=== PATIENT | female | born 1950 | race Caucasian/White ===

== ENCOUNTER 2019-10-05 02:42 | Inpatient (IN) | payer MEDICARE, MEDICAID, SELFPAY ==
[2019-10-05] VITALS (12 sets, daily range): BP systolic 138–194; BP diastolic 71–100; PULSE 85–110; RESP 14–22; TEMP 36.7–38.2; O2SAT 92–98; BMI 49.2; BMI 47.9; BMI 35.0
--- NOTE | 2019-10-05 02:41 | ECG_ITS ---
APPROVED REPORT Exam: Resting ECG HR:115 bpm ECG Measurements Heart Rate 115 AXES WI 144 P 60 QRSd 78 QRS 63 QT 328 T 103 QTc 453 <Conclusion> Sinus tachycardia Otherwise normal ECG Electronically signed by : Santiago Paiz, 10/05/2019 08:38:32
--- NOTE | 2019-10-05 02:45 | PC.NURSE ---
pt received 500ml from ems fire suppression captain to ed.
--- NOTE | 2019-10-05 02:45 | PC.NURSE ---
ASSISTED PT TO BED VIA [facility]. REPORT RECEIVED FROM EMT-P SAGE THAT PATIENT IS CONSIDERED A COVID R/O DUE TO SYMPTOMS. APPROPRIATE PPE DONNED PER STAFF. PT A&OX4. GCS 15 AT TIME OF TRIAGE. SKIN FEELS, VERY WARM/DRY;HOT TO TOUCH. EXPLAINED NEED FOR IV'S, LABS, FLUIDS AND F/C. PT IS AGREEABLE.
--- NOTE | 2019-10-05 02:46 | XR_ITS ---
PROCEDURE: XR CHEST PORTABLE CLINICAL HISTORY: fever Fever COMPARISON: No exams were available for comparison FINDINGS: The cardiomediastinal silhouette and pulmonary vascularity are within normal limits. The lungs are clear without infiltrates, suspicious nodules, or pleural effusions. No acute bony abnormalities. Artifact is noted over the left shoulder IMPRESSION: No acute findings. Dictated by: Frederick Mcgovenr MD 10/05/2019 07:00 Electronically signed by Frederick Mcgovern MD in [place] 10/05/2019 07:00
[2019-10-05 03:02] LABS: Microscopic, Urine URINE MICROSCOPIC (MICROSCOPIC)
[2019-10-05 03:05] LABS: Chloride 99 mmol/L (98-107); Potassium 4.1 mmoL/L (3.5-5.1); Sodium 137 mmol/L (136-145)
[2019-10-05 03:07] LABS: Blood Urea Nitrogen 13 mg/dl (7-17); Creatinine Clearance Estimated 55 mL/min (50-200); Estimated Glomerular Filt Rate 71 ml/min (>60); GFR (African American) 86 ML/MIN (>60)
[2019-10-05 03:08] LABS: Lactic Acid 1.2 mmol/L (0.7-2.1)
[2019-10-05 03:08] LABS: Alanine Aminotransferase 25 U/L (12-78); Albumin Level 3.7 g/dl (3.5-5.0); Albumin/Globulin Ratio 1.3 (1.1-1.8); Alkaline Phosphatase 52 U/L (38-126); Anion Gap 8.1 mEq/L (5-15); Aspartate Amino Transferase 41 U/L (14-36); Bilirubin,Total 0.5 mg/dl (0.2-1.3); Calcium 9.7 mg/dl (8.4-10.2); Carbon Dioxide 34 mmol/L (22.0-30.0); Globulin 2.9 g/dL (1.3-3.2); Glucose 93 mg/dl (74-100); Total Protein,Serum 6.6 g/dl (6.3-8.2)
[2019-10-05 03:12] LABS: Basophils # 0.3 K/mm3 (0-0.2); Basophils % 5.9 % (0.1-2.0); Eosinophils % 0.5 % (0.1-12.0); Hematocrit 37.6 % (37.0-47.0); Hemoglobin 12.7 g/dL (12.2-16.2); Lymphocytes # 1.1 K/mm3 (0.7-4.5); Lymphocytes % 21.1 % (10-50); Mean Corpuscular HGB Conc 33.9 g/dL (31.8-35.4); Mean Corpuscular Hemoglobin 32.6 pg (27.0-31.2); Mean Corpuscular Volume 96.3 fl (81-99); Mean Platelet Volume 8.9 fl (7.4-10.4); Monocytes # 0.5 K/mm3 (0.1-1.0); Monocytes % 8.9 % (1.7-9.3); Neutrophils # 3.6 K/mm3 (1.8-7.8); Neutrophils % 69.5 % (37.0-80.0); Platelet Count 159 K/mm3 (142-424); Red Cell Distribution Width 17.2 % (11.5-17.5); White Blood Count 5.2 K/mm3 (4.8-10.8)
[2019-10-05 03:13] LABS: C-Reactive Protein 11.8 mg/L (0-4)
[2019-10-05 03:19] LABS: NT Pro Brain Natriuretic Pep. 153 pg/mL (0-125)
--- NOTE | 2019-10-05 03:24 | PC.NURSE ---
CALLED [facility] FOR COVID SWAB TESTING.
--- NOTE | 2019-10-05 03:24 | HMH.EDFEV ---
ED Disposition Clinical Impression: Febrile illness, acute, COVID-19 Disposition: Home, Self-Care Condition on Discharge: Fair Referrals: Provider,Referral, [Referring] - - Critical Care Critical Care Time: No Attestation: On 10/05/19, the high probability of a clinically significant, sudden or life threatening deterioration of the following system(s) required my full and direct attention, intervention and personal management. The time I documented below is in addition to time spent performing reported procedures but includes the following listed in this critical care notation. Medical Decision Making - Medical Records Medical records reviewed: Yes: I reviewed the patient's medical records. - Jovanny Inquiry Pt receiving controlled substance: No Vital Signs: 10/05/19 02:51 10/05/19 03:23 10/05/19 03:52 Temperature 100.8 F H 98.0 F Temperature Source Rectal Oral Pulse Rate [Right Brachial] 110 H 105 H 102 H Respiratory Rate 15 18 16 Blood Pressure [Right Arm] 165/94 H 152/74 H 146/71 H Blood Pressure Mean [Right Arm] 117 100 96 Blood Pressure Source [Right Arm] Manual Cuff/ Doppler Automatic Cuff Automatic Cuff Blood Pressure Position [Right Arm] Sitting Sitting Supine 02 Sat by Pulse Oximetry 95 98 95 Oxygen Delivery Method Room Air Room Air Room Air 10/05/19 04:00 10/05/19 04:44 Temperature Temperature Source Pulse Rate [Right Brachial] 105 H 101 H Respiratory Rate 18 14 Blood Pressure [Right Arm] 188/100 H 178/92 H Blood Pressure Mean [Right Arm] 129 120 Blood Pressure Source [Right Arm] Blood Pressure Position [Right Arm] Supine Supine 02 Sat by Pulse Oximetry 94 L 94 L Oxygen Delivery Method Room Air Room Air - Lab Data Lab results reviewed: Yes: I reviewed the patient's lab results. Lab Results 10/05/19 02:30: WBC 5.2, RBC 3.90 L, Hgb 12.7, Hct 37.6, MCV 96.3, MCH 32.6 H, MCHC 33.9, RDW 17.2, Plt Count 159, MPV 8.9, Neut % (Auto) 69.5, Lymph % (Auto) 21.1, [place] % (Auto) 8.9, Eos % (Auto) 0.5, Baso % (Auto) 5.9 H, Neut # (Auto) 3.6, Lymph # (Auto) 1.1, [place] # (Auto) 0.5, Eos # (Auto) 0.0, Baso # (Auto) 0.3 H 10/05/19 02:30: Sodium 137, Potassium 4.1, Chloride 99, Carbon Dioxide 34 H, Anion Gap 8.1, BUN 13, Creatinine 0.80, Estimated Creat Clear 55, Estimated GFR 71, Est GFR ( Amer) 86, Glucose 93, Calcium 9.7, Total Bilirubin 0.5, AST 41 H, ALT 25, Alkaline Phosphatase 52, Troponin I < 0.01, C-Reactive Protein 11.8 H, Total Protein 6.6, Albumin 3.7, Globulin 2.9, Albumin/Globulin Ratio 1.3 10/05/19 02:30: ESR 16 10/05/19 02:30: NT-Pro-B Natriuret Pep 153 H 10/05/19 02:30: Total Valproic Acid 58.8 10/05/19 02:40: Urine Color Yellow, Urine Appearance Clear, Urine pH 7.0, Ur Specific [place] 1.020, Urine Protein Negative, Urine Glucose (UA) Negative, Urine Ketones Negative, Urine Blood Negative, Urine Nitrate Negative, Urine Bilirubin Negative, Urine Urobilinogen 0.2, Ur Leukocyte Esterase Negative, Urine WBC 3-5, Ur Squamous Epith Cells 3-5, Urine Bacteria 1+ 10/05/19 02:40: Lactate 1.2 10/05/19 02:40: Influenza Type A Ag Negative, Influenza Type B Ag Negative 10/05/19 02:40: Group A Strep Rapid Negative 10/05/19 03:50: Chlamy pneumoniae PCR Not detected, Adenovirus (PCR) Not detected, B. pertussis DNA (PCR) Not detected, Coronavirus OC43 (PCR) Not detected, Coronavirus HKU1 (PCR) Not detected, Coronavirus 229E (PCR) Not detected, COVID-19 PCR Detected A, Coronavirus NL63 (PCR) Not detected, Human Metapneumovir PCR Not detected, Influenza A (H1) PCR Not detected, Influ A (H1N1/09) PCR Not detected, Influenza A (H3) PCR Not detected, Influenza Type A (PCR) Not detected, Influenza Type B (PCR) Not detected, M. pneumoniae (PCR) Not detected, Parainfluenza 1 (PCR) Not detected, Parainfluenza 2 (PCR) Not detected, Parainfluenza 3 (PCR) Not detected, Parainfluenza 4 (PCR) Not detected, RSV (PCR) Not detected, Entero/Rhino (PCR) Not detected Result diagrams: 10/05/19 02:30 10/05/19 02:30 Sb
[2019-10-05 03:26] LABS: Appearance,Urine CLEAR (Clear); Bilirubin,Urine Negative (Negative); Blood, Urine Negative (Negative); Color,Urine YELLOW (Yellow); Glucose,Urine (UA) Negative (Negative); Ketones,Urine Negative (Negative); Leukocyte Esterase,Urine Negative (Negative); Nitrate,Urine Negative (Negative); Protein,Urine Negative (Negative); Urobilinogen,Urine 0.2 EU/dl (0.2)
[2019-10-05 03:26] LABS: Troponin I < 0.01 ng/ml (0.00-0.034)
[2019-10-05 03:29] LABS: Strep Scrn Group A (Rapid) Negative (Negative)
[2019-10-05 03:35] LABS: Bacteria,Urine 1+ /lpf
[2019-10-05 03:40] LABS: Erythrocyte Sedimentation Rate 16 mm/hr (0-30)
[2019-10-05 03:53] LABS: Valproic Acid, (Depakene) 58.8 ug/ml (50-100)
--- NOTE | 2019-10-05 03:55 | PC.NURSE ---
LAB AT BEDSIDE
[2019-10-05 04:08] LABS: Adenovirus,PCR Not Detected (NotDetected); Bordetella Pertussis Not Detected (NotDetected); Chlamydophila Pneumoniae, PCR Not Detected (NotDetected); Coronavirus 229E Not Detected (NotDetected); Coronavirus NL63 Not Detected (NotDetected); Coronavirus OC43 Not Detected (NotDetected); Coronovirus HKU1,PCR Not Detected (NotDetected); Human Metapneumovirus Not Detected (NotDetected); Influenza A, PCR Not Detected (NotDetected); Influenza AH1, 2009 Not Detected (NotDetected); Influenza AH1, PCR Not Detected (NotDetected); Influenza AH3,PCR Not Detected (NotDetected); Influenza B, PCR Not Detected (NotDetected); Mycoplasma Pneumoniae, PCR Not Detected (NotDected); Parainfluenza 1, PCR Not Detected (NotDetected); Parainfluenza 2, PCR Not Detected (NotDetected); Parainfluenza 3, PCR Not Detected (NotDetected); Parainfluenza 4, PCR Not Detected (NotDetected); Respiratory Syncytial Virus Not Detected (NotDetected); Rhinovirus/Enterovirus Not Detected (NotDetected)
--- NOTE | 2019-10-05 04:51 | PC.NURSE ---
pt resting with eyes closed, no acute distress.
[2019-10-05 05:27] LABS: Coronavirus 19, PCR Detected (NotDetected)
--- NOTE | 2019-10-05 05:34 | PC.NURSE ---
notified house of covid result
[2019-10-05 06:30] LABS: Troponin I < 0.01 ng/ml (0.00-0.034)
--- NOTE | 2019-10-05 06:44 | SW/DCPLANNER ---
PATIENT ADMITTED [facility].... CURRENTLY IN THE ICU, PATIENT WILL NEED DISCHARGE PLANNING ONCE MEDICALLY STABLE TO DISCHARGE... WILL KEEP IN CONTACT WITH HER PERSONAL [facility] TO WHETHER SHE WILL BE ABLE TO RETURN BACK THERE... DISPOSITION UNCERTAIN...
--- NOTE | 2019-10-05 07:15 | PC.NURSE ---
She is weak. She is A&Ox4. Voiding per f/c. Urine is yellow, clear. Reports some body aches. Is in contact and airborne precautions. Non-productive cough present. Denies sore throat and head. Denies GI symptoms.
[2019-10-05 10:29] LABS: Troponin I < 0.01 ng/ml (0.00-0.034)
--- NOTE | 2019-10-05 11:07 | HMH.HP ---
*Admission Date: 10/05/19 *Chief complaint: Fever *History of present illness: 68 YOF in to ED w/ fever x2 to 3 days, recent exposure and care home to [place] [id number]. Patient reports of bilateral lower extremity aches productive cough, and just not feeling well . Received Toradol 30 mg and normal saline 1 L in ED temperature was 100.8 rectally upon arrival in ED COVID-19 positive, virus panel negative. Blood cultures pending x2 Troponins negative x3 10/04/2019 chest x-ray: IMPRESSION: No acute findings. Dictated by: Dr. Mcgovern, [facility] History Medical History: Reports:: Hypertension Denies:: Cancer, Diabetes Mellitus Type 1, Diabetes Mellitus Type 2, MRSA *Have you ever received a pneumonia vaccine?: Yes *Have you received a flu vaccine this season?: Yes Amputation: No - *Social History Educational Level: Attended High School Smoking Status: Former smoker Alcohol Intake: never *Occupational Status:: retired Housing: assisted living facility Household Members: none *Travel in the last 8 weeks: None Family Hx:: Unable to obtain Review of Systems - Review of Systems Review of systems:: pertinent systems reviewed and negative unless documented below - Constitutional Reports body ache(s), Reports fatigue, Reports fever(s) - Eyes Denies change in vision - ENT Denies dental pain, Denies headache(s) - *Cardiovascular Denies chest pain - *Respiratory Reports chest congestion, Reports cough, Reports shortness of breath, Denies coughing up blood - *Gastrointestinal Denies abdominal pain, Denies change in bowel habits - *Musculoskeletal Reports body aches, Denies back pain - Integumentary/Breasts Denies change in hair, Denies yellowing of the skin - *Neurologic Denies headache(s), Denies seizure-like activity - Endocrine Denies cold intolerance, Denies heat intolerance, Denies rapid, pounding, or irregular heartbeat - Hematologic/Lymphatic Denies easy bleeding, Denies easy bruising - Allergic/Immunologic Denies GI upset with certain foods, Denies tongue swelling Meds Home Medications Medication Instructions Recorded Confirmed Type Amlodipine Besylate [Amlodipine 1 tab PO DAILY 10/05/19 10/05/19 History 5mg tab] Ascorbic Acid [Vitamin C] 1,000 mg PO DAILY 10/05/19 10/05/19 History Aspirin [Aspirin 81mg chewable 81 mg PO DAILY 10/05/19 10/05/19 History tab] Calcium Carbonate/Vitamin D3 1 each PO DAILY 10/05/19 10/05/19 History [Oyster Shell 250 mg + Vit D Tb] Divalproex Sodium [Depakote] 500 mg PO DAILY 10/05/19 10/05/19 History Melatonin/Pyridoxine HCl (B6) 1 each PO DAILY 10/05/19 10/05/19 History [Melatonin 1 mg Tablet] Mvit-Mins/Folic Acid/Soy Isofl 1 each PO DAILY 10/05/19 10/05/19 History [One-A-Day Menopause Formula Tb] polyethylene glycoL 3350 [Miralax 17 gm PO DAILY 10/05/19 10/05/19 History 17gm Packet] risperiDONE [Risperdal 1mg Tablet] 2 mg PO HS 10/05/19 10/05/19 History Allergies Allergy/AdvReac Type Severity Reaction Status Date / Time No Known Allergies Allergy Verified 10/05/19 07:26 Exam Vital signs and Labs for Last 24 Hours: Temp Pulse Resp BP Pulse Ox 98.0 F 85 16 194/95 H 97 10/05/19 08:00 10/05/19 08:00 10/05/19 08:00 10/05/19 08:00 10/05/19 08:00 Laboratory Results - last 24 hr 10/05/19 02:30: WBC 5.2, RBC 3.90 L, Hgb 12.7, Hct 37.6, MCV 96.3, MCH 32.6 H, MCHC 33.9, RDW 17.2, Plt Count 159, MPV 8.9, Neut % (Auto) 69.5, Lymph % (Auto) 21.1, [place] % (Auto) 8.9, Eos % (Auto) 0.5, Baso % (Auto) 5.9 H, Neut # (Auto) 3.6, Lymph # (Auto) 1.1, [place] # (Auto) 0.5, Eos # (Auto) 0.0, Baso # (Auto) 0.3 H 10/05/19 02:30: Sodium 137, Potassium 4.1, Chloride 99, Carbon Dioxide 34 H, Anion Gap 8.1, BUN 13, Creatinine 0.80, Estimated Creat Clear 55, Estimated GFR 71, Est GFR ( Amer) 86, Glucose 93, Calcium 9.7, Total Bilirubin 0.5, AST 41 H, ALT 25, Alkaline Phosphatase 52, Troponin I < 0.01, C-Reactive Protein 11.8 H,
--- NOTE | 2019-10-05 11:34 | HMH.PHAVTE ---
[facility] Pharmacy VTE Monitoring - Patient Demographics Admission date: 10/04/19 Report Date: 10/05/19 Time: 11:34 Allergies/Adverse Reactions: Patient Allergies No Known Allergies Allergy (Verified 10/05/19 07:26) Height: 1.8 m Weight: 113.908 kg Patient Problems: Current Active Problems Febrile illness, acute (Acute) COVID-19 (Acute) - VTE Risk Labs: VTE Related Lab Results Hgb 12.7 g/dL (12.2-16.2) 10/05/19 02:30 Hct 37.6 % (37.0-47.0) 10/05/19 02:30 Plt Count 159 K/mm3 (142-424) 10/05/19 02:30 BUN 13 mg/dl (7-17) 10/05/19 02:30 Creatinine 0.80 mg/dl (0.52-1.04) 10/05/19 02:30 Estimated Creat Clear 55 mL/min (50-200) 10/05/19 02:30 Was VTE Risk Assessment Performed: No VTE Score: 5 VTE Risk Level: Low Risk Clinical Trial Participant: No - Prophylaxis VTE Prophylaxis Ordered?: Yes Types of VTE Prophylaxis: TEDS Knee High, Pharmacological Pharmacologic Type: Enoxaparin
--- NOTE | 2019-10-05 13:17 | HMH.PHAINT ---
MEDICATION RECONCILIATION COMPLETED ON PATIENT USING LIST FROM [facility]. -ARLENE GARZA, ARIELLED
--- NOTE | 2019-10-05 14:24 | HMH.PHAINT ---
HOME MEDICATION RECONCILIATION COMPLETED USING A LIST FROM [facility]
--- NOTE | 2019-10-05 18:36 | PC.NURSE ---
Pt alert and oriented. New IV started in L AC with NS at 75 ML/HR per jul. CB in reach. Have repositioned in bed. No complaints. Has maintained sats well on RA. Will cont to mx. Continues in isolation. Bath given. VSS.
[2019-10-06] VITALS: BP 177/90; PULSE 97; RESP 20; TEMP 37.9; O2SAT 95
[2019-10-06 04:00] VITALS: BP 150/93; PULSE 98; RESP 18; TEMP 37.6; O2SAT 95
[2019-10-06 05:00] VITALS: BMI 34.8
[2019-10-06 05:25] LABS: Basophils # 0.2 K/mm3 (0-0.2); Basophils % 5.4 % (0.1-2.0); Chloride 101 mmol/L (98-107); Eosinophils % 0.9 % (0.1-12.0); Hematocrit 37.9 % (37.0-47.0); Hemoglobin 12.8 g/dL (12.2-16.2); Lymphocytes # 1.4 K/mm3 (0.7-4.5); Lymphocytes % 36.8 % (10-50); Mean Corpuscular HGB Conc 33.7 g/dL (31.8-35.4); Mean Corpuscular Hemoglobin 32.6 pg (27.0-31.2); Mean Corpuscular Volume 96.7 fl (81-99); Mean Platelet Volume 9.3 fl (7.4-10.4); Monocytes # 0.4 K/mm3 (0.1-1.0); Neutrophils % 51.3 % (37.0-80.0); Platelet Count 134 K/mm3 (142-424); Potassium 3.7 mmoL/L (3.5-5.1); Red Blood Count 3.91 M/mm3 (4.20-5.40); Red Cell Distribution Width 17.3 % (11.5-17.5); Sodium 138 mmol/L (136-145); White Blood Count 3.8 K/mm3 (4.8-10.8)
[2019-10-06 05:28] LABS: Anion Gap 8.7 mEq/L (5-15); Blood Urea Nitrogen 11 mg/dl (7-17); Carbon Dioxide 32 mmol/L (22.0-30.0); Creatinine Clearance Estimated 94 mL/min (50-200); Estimated Glomerular Filt Rate 83 ml/min (>60); GFR (African American) 100 ML/MIN (>60)
[2019-10-06 05:29] LABS: Glucose 78 mg/dl (74-100)
[2019-10-06 06:23] LABS: Calcium 8.3 mg/dl (8.4-10.2)
--- NOTE | 2019-10-06 06:48 | PC.NURSE ---
shift summary, temp has remained between 99.0 and 100.5 throughout shift, O2 sats have been high 90's on RA, no complaints of SOB or pain.
[2019-10-06 07:56] VITALS: BP 180/99; PULSE 81; RESP 20; TEMP 36.8; O2SAT 94
--- NOTE | 2019-10-06 08:59 | HMH.ACPN2 ---
Internal Medicine - PN: Subj *Date: 10/06/19 *Time: 08:59 Interval history: 68-year-old female patient sitting up in bed tolerating breakfast without any difficulties. Current oxygen saturation 93 to 95% on room air, she denies any needs at this time, temperature overnight 100.2. Exam Vital signs and Labs for Last 24 Hours: Temp Pulse Resp BP Pulse Ox 98.3 F 81 20 180/99 H 94 L 10/06/19 07:56 10/06/19 07:56 10/06/19 07:56 10/06/19 07:56 10/06/19 07:56 Laboratory Results - last 24 hr 10/05/19 09:25: Troponin I < 0.01 10/06/19 05:00: WBC 3.8 L D, RBC 3.91 L, Hgb 12.8, Hct 37.9, MCV 96.7, MCH 32.6 H, MCHC 33.7, RDW 17.3, Plt Count 134 L, MPV 9.3, Neut % (Auto) 51.3, Lymph % (Auto) 36.8, [place] % (Auto) 11.0 H, Eos % (Auto) 0.9, Baso % (Auto) 5.4 H, Neut # (Auto) 2.0, Lymph # (Auto) 1.4, [place] # (Auto) 0.4, Eos # (Auto) 0.0, Baso # (Auto) 0.2 10/06/19 05:00: Sodium 138, Potassium 3.7, Chloride 101, Carbon Dioxide 32 H, Anion Gap 8.7, BUN 11, Creatinine 0.70, Estimated Creat Clear 94, Estimated GFR 83, Est GFR ( Amer) 100, Glucose 78, Calcium 8.3 L D I & O for Last 24 hours: Intake & Output 10/03/19 10/04/19 10/05/19 10/06/19 23:59 23:59 23:59 23:59 Intake Total 2840 / 2840 1090 / 1090 Output Total 2300 / 2300 1700 / 1700 Balance 540 / 540 -610 / -610 Weight 251 lb 2 oz 249 lb - Constitutional no acute distress - *Routine HEENT Exam Head: Present: normocephalic ENT: Present: mucous membranes dry - *Routine Neck Exam Present: full ROM, trachea midline. Absent: JVD, tracheal deviation - *Routine Respiratory Exam Present: rhonchi. Absent: accessory muscle use - *Routine Cardiovascular Exam Present: RRR, murmur - *Routine Abdominal Exam Present: soft, normoactive bowel sounds. Absent: tenderness, firm - *Routine Extremities Exam Present: edema, pulses intact - *Routine Skin Exam Present: intact, warm. Absent: jaundice - *Routine Neurological Exam Present: alert, altered mental status - Routine Psychiatric Exam Present: unable to assess Assessment and Plan (1) COVID-19 Current visit: Yes Status: Acute Category: Medical Code(s): U07.1 - COVID-19 (2) Febrile illness, acute Current visit: Yes Status: Acute Category: Medical Code(s): R50.9 - Fever, unspecified (3) Adult BMI 34.0-34.9 kg/sq m Current visit: Yes Status: Acute Category: Medical Code(s): Z68.34 - Body mass index (BMI) 34.0-34.9, adult - Assessment and plan all Dx Assessment and Plan for all problems:: Rounded with Dr. Saenz, all orders per Dr. Saenz
[2019-10-06 11:47] VITALS: BP 157/91; PULSE 80; RESP 21; TEMP 36.6; O2SAT 94
--- NOTE | 2019-10-06 14:00 | PC.NURSE ---
PT IS RESTING IN BED. NO COMPLAINTS OF DISCOMFORT. ALERT AND ORIENTED X4. RT SIDED FACIAL DROOPING NOTED FROM A CVA IN THE PAST. PT WAS ABLE TO TOLERATE GETTING OOB WITH 1 ASSIST. MODERATE BROWN/HARD BOWEL MOVEMENT. LUNG SOUNDS HAVE SCATTERED RHONCHI. ABDOMEN SOFT/OBESE WITH ACTIVE BOWEL SOUNDS. SKIN C/D/I. BATH AND LINEN CHANGE THIS SHIFT. EATING AND DRINKING WELL. WILL CONTINUE TO MONITOR.
[2019-10-06 15:19] VITALS: BP 165/88; PULSE 83; RESP 18; TEMP 36.8; O2SAT 97
[2019-10-06 20:00] VITALS: BP 160/75; PULSE 89; PULSE 92; RESP 16; TEMP 36.7; O2SAT 94; O2SAT 95
[2019-10-07] VITALS: BP 157/76; PULSE 89; RESP 18; TEMP 36.4; O2SAT 95
[2019-10-07 04:00] VITALS: BP 137/66; PULSE 98; RESP 18; TEMP 37; O2SAT 96
[2019-10-07 05:00] VITALS: BMI 34.3
--- NOTE | 2019-10-07 06:40 | PC.NURSE ---
All care provided by GASPER Durant was supervised by Caterina Fleming RN. Pt is in Airborne & Contact precautions with eye protection and all staff has maintained proper PPE t/o shift.
[2019-10-07 06:49] LABS: Basophils # 0.1 K/mm3 (0-0.2); Basophils % 1.5 % (0.1-2.0); Eosinophils % 0.3 % (0.1-12.0); Hematocrit 37.6 % (37.0-47.0); Hemoglobin 12.4 g/dL (12.2-16.2); Lymphocytes # 1.1 K/mm3 (0.7-4.5); Lymphocytes % 27.4 % (10-50); Mean Corpuscular HGB Conc 33.1 g/dL (31.8-35.4); Mean Corpuscular Hemoglobin 32.2 pg (27.0-31.2); Mean Corpuscular Volume 97.4 fl (81-99); Monocytes # 0.3 K/mm3 (0.1-1.0); Monocytes % 7.9 % (1.7-9.3); Neutrophils # 2.5 K/mm3 (1.8-7.8); Neutrophils % 62.9 % (37.0-80.0); Platelet Count 144 K/mm3 (142-424); Red Blood Count 3.86 M/mm3 (4.20-5.40); Red Cell Distribution Width 17.1 % (11.5-17.5)
[2019-10-07 06:58] LABS: Anion Gap 5.4 mEq/L (5-15); Blood Urea Nitrogen 10 mg/dl (7-17); Calcium 8.3 mg/dl (8.4-10.2); Carbon Dioxide 34 mmol/L (22.0-30.0); Chloride 101 mmol/L (98-107); Creatinine Clearance Estimated 92 mL/min (50-200); Estimated Glomerular Filt Rate 83 ml/min (>60); GFR (African American) 100 ML/MIN (>60); Glucose 79 mg/dl (74-100); Potassium 3.4 mmoL/L (3.5-5.1); Sodium 137 mmol/L (136-145)
--- NOTE | 2019-10-07 07:35 | PC.NURSE ---
Pt has rested well t/o this shift. Pt denied any pain, N/V, or SOB this shift. Pt had a large, hard BM at the beginning of the shift. Henderson cath draining clear, ylw urine to gravity. Henderson in place d/t strict I&O's. Pt continues on room air with sats in the mid 90's. VSS, call light within reach, will continue to monitor.
[2019-10-07 08:00] VITALS: BP 169/74; PULSE 96; RESP 18; TEMP 36.9; O2SAT 96
--- NOTE | 2019-10-07 08:44 | P.PN_ITS ---
Internal Medicine - PN: Subj *Date: 10/07/19 *Time: 08:44 Interval history: pt sitting up in bed talking on the phone. Exam Vital signs and Labs for Last 24 Hours: Temp Pulse Resp BP Pulse Ox 98.4 F 96 H 18 169/74 H 96 10/07/19 08:00 10/07/19 08:00 10/07/19 08:00 10/07/19 08:00 10/07/19 08:00 Laboratory Results - last 24 hr 10/07/19 06:04: WBC 4.0 L, RBC 3.86 L, Hgb 12.4, Hct 37.6, MCV 97.4, MCH 32.2 H, MCHC 33.1, RDW 17.1, Plt Count 144, MPV 9.0, Neut % (Auto) 62.9, Lymph % (Auto) 27.4, [place] % (Auto) 7.9, Eos % (Auto) 0.3, Baso % (Auto) 1.5, Neut # (Auto) 2.5, Lymph # (Auto) 1.1, [place] # (Auto) 0.3, Eos # (Auto) 0.0, Baso # (Auto) 0.1 10/07/19 06:04: Sodium 137, Potassium 3.4 L, Chloride 101, Carbon Dioxide 34 H, Anion Gap 5.4, BUN 10, Creatinine 0.70, Estimated Creat Clear 92, Estimated GFR 83, Est GFR ( Amer) 100, Glucose 79, Calcium 8.3 L I & O for Last 24 hours: Intake & Output 10/04/19 10/05/19 10/06/19 10/07/19 11:59 11:59 11:59 11:59 Intake Total 2360 / 2360 1570 / 1570 1944 / 1944 Output Total 4000 / 4000 1100 / 1100 Balance 2360 / 2360 -2430 / -2430 844 / 844 Weight 251 lb 2 oz 249 lb 245 lb 2 oz Microbiology Reports for the Last 24 Hours: Microbiology 10/05/19 02:40 Blood Blood Culture - Preliminary NO GROWTH AFTER 48 HOURS 10/05/19 02:40 Blood Blood Culture - Preliminary NO GROWTH AFTER 48 HOURS - Constitutional no acute distress - *Routine HEENT Exam Head: Present: normocephalic Eye: Present: PERRL ENT: Present: mucous membranes moist - *Routine Neck Exam Present: supple. Absent: lymphadenopathy - *Routine Respiratory Exam Present: decreased breath sounds, CTA bilaterally - *Routine Cardiovascular Exam Present: RRR - *Routine Abdominal Exam Present: soft, normoactive bowel sounds. Absent: tenderness - *Routine Extremities Exam Present: normal capillary refill. Absent: cyanosis, clubbing, edema - *Routine Skin Exam Present: warm. Absent: rash - *Routine Neurological Exam Present: alert, oriented X3 - Routine Psychiatric Exam Present: normal affect Assessment and Plan (1) COVID-19 Current visit: Yes Status: Acute Category: Medical Code(s): U07.1 - COVID- 19 (2) Febrile illness, acute Current visit: Yes Status: Acute Category: Medical Code(s): R50.9 - Fever, unspecified (3) Adult BMI 34.0-34.9 kg/sq m Current visit: Yes Status: Acute Category: Medical Code(s): Z68.34 - Body mass index (BMI) 34.0-34.9, adult - Assessment and plan all Dx Assessment and Plan for all problems:: Rounded with Dr. Saenz all orders per Letty
[2019-10-07 11:09] VITALS: BP 162/85; PULSE 87; RESP 18; TEMP 36.8; O2SAT 95
--- NOTE | 2019-10-07 12:38 | SW/DCPLANNER ---
Addendum entered by Madisyn Jeffries 10/08/19 13:20: I have called and spoke with Jenna today with no response and she has stated she will need to call me back. Original Note: I have contacted Jenna with [facility] regarding requirements for this patient to admit back to [facility] once medically stable due to positive COVID-19. Jenna has stated she would need to speak with administration then contact me back.
[2019-10-07 16:00] VITALS: BP 166/96; PULSE 94; RESP 18; TEMP 37.2; O2SAT 96
[2019-10-07 20:00] VITALS: BP 176/84; PULSE 93; RESP 17; TEMP 36.7; O2SAT 97
[2019-10-08] VITALS (9 sets, daily range): BP systolic 108–167; BP diastolic 72–94; PULSE 93–113; RESP 15–20; TEMP 36.6–38.7; O2SAT 91–98; BMI 34.3
--- NOTE | 2019-10-08 03:13 | PC.NURSE ---
PT. HAS NOT C/O N/V/D, SOA, DIZZINESS OR PAIN THIS SHIFT. PT. ONLY COMPLAINT IS RLQ TENDERNESS, DISTENDED UPON PALPATION; HYPOACTIVE BOWEL SOUNDS IN ALL QUADS. FC PRESENT DRAINING DARK YELLOW/ORANGE URINE. PT. RESTING IN BED WITH EYES CLOSED AT THIS TIME.
[2019-10-08 05:55] LABS: Anion Gap 6.5 mEq/L (5-15); Blood Urea Nitrogen 8 mg/dl (7-17); Calcium 8.1 mg/dl (8.4-10.2); Carbon Dioxide 31 mmol/L (22.0-30.0); Chloride 101 mmol/L (98-107); Creatinine Clearance Estimated 92 mL/min (50-200); Estimated Glomerular Filt Rate 99 ml/min (>60); GFR (African American) 120 ML/MIN (>60); Glucose 97 mg/dl (74-100); Potassium 3.5 mmoL/L (3.5-5.1); Sodium 135 mmol/L (136-145)
[2019-10-08 06:18] LABS: Basophils # 0.1 K/mm3 (0-0.2); Basophils % 1.6 % (0.1-2.0); Eosinophils % 0.2 % (0.1-12.0); Hematocrit 35.1 % (37.0-47.0); Hemoglobin 12.2 g/dL (12.2-16.2); Lymphocytes % 19.8 % (10-50); Mean Corpuscular HGB Conc 34.8 g/dL (31.8-35.4); Mean Corpuscular Hemoglobin 32.7 pg (27.0-31.2); Mean Corpuscular Volume 93.9 fl (81-99); Mean Platelet Volume 9.1 fl (7.4-10.4); Monocytes # 0.3 K/mm3 (0.1-1.0); Monocytes % 6.2 % (1.7-9.3); Neutrophils # 3.5 K/mm3 (1.8-7.8); Neutrophils % 72.2 % (37.0-80.0); Platelet Count 142 K/mm3 (142-424); Red Blood Count 3.73 M/mm3 (4.20-5.40); Red Cell Distribution Width 17.1 % (11.5-17.5); White Blood Count 4.9 K/mm3 (4.8-10.8)
--- NOTE | 2019-10-08 08:50 | P.PN_ITS ---
Internal Medicine - PN: Subj *Date: 10/08/19 *Time: 08:50 Interval history: Patient eating breakfast says she does not need to eat much. Patient states she feels better Exam Vital signs and Labs for Last 24 Hours: Temp Pulse Resp BP Pulse Ox 98 F 103 H 18 149/94 H 95 10/08/19 07:57 10/08/19 07:57 10/08/19 07:57 10/08/19 07:57 10/08/19 07:57 Laboratory Results - last 24 hr 10/08/19 05:18: WBC 4.9, RBC 3.73 L, Hgb 12.2, Hct 35.1 L, MCV 93.9, MCH 32.7 H, MCHC 34.8, RDW 17.1, Plt Count 142, MPV 9.1, Neut % (Auto) 72.2, Lymph % (Auto) 19.8, [place] % (Auto) 6.2, Eos % (Auto) 0.2, Baso % (Auto) 1.6, Neut # (Auto) 3.5, Lymph # (Auto) 1.0, [place] # (Auto) 0.3, Eos # (Auto) 0.0, Baso # (Auto) 0.1 10/08/19 05:18: Sodium 135 L, Potassium 3.5, Chloride 101, Carbon Dioxide 31 H, Anion Gap 6.5, BUN 8, Creatinine 0.60, Estimated Creat Clear 92, Estimated GFR 99, Est GFR ( Amer) 120, Glucose 97 D, Calcium 8.1 L I & O for Last 24 hours: Intake & Output 10/05/19 10/06/19 10/07/19 10/08/19 11:59 11:59 11:59 11:59 Intake Total 2360 / 2360 1570 / 1570 1944 / 1944 2338 / 2338 Output Total 4000 / 4000 1100 / 1100 1600 / 1600 Balance 2360 / 2360 -2430 / -2430 844 / 844 738 / 738 Weight 251 lb 2 oz 249 lb 245 lb 2 oz 245 lb 2.006 oz Microbiology Reports for the Last 24 Hours: Microbiology 10/05/19 02:40 Throat Throat Culture - Final Proteus mirabilis 10/05/19 02:40 Throat Group A Streptococcus Screen (SAROJ) - Final Negative for Group A Streptococcus. - Constitutional no acute distress, obese - *Routine HEENT Exam Head: Present: normocephalic Eye: Present: PERRL ENT: Present: mucous membranes moist - *Routine Neck Exam Present: supple. Absent: lymphadenopathy - *Routine Respiratory Exam Present: CTA bilaterally - *Routine Cardiovascular Exam Present: RRR - *Routine Abdominal Exam Present: soft, normoactive bowel sounds. Absent: tenderness - *Routine Extremities Exam Absent: cyanosis, clubbing, edema - *Routine Skin Exam Present: dry, warm. Absent: rash - *Routine Neurological Exam Present: alert - Routine Psychiatric Exam Present: normal affect Assessment and Plan (1) COVID-19 Current visit: Yes Status: Acute Category: Medical Code(s): U07.1 - COVID- 19 (2) Febrile illness, acute Current visit: Yes Status: Acute Category: Medical Code(s): R50.9 - Fever, unspecified (3) Adult BMI 34.0-34.9 kg/sq m Current visit: Yes Status: Acute Category: Medical Code(s): Z68.34 - Body mass index (BMI) 34.0-34.9, adult (4) Proteus mirabilis infection Current visit: Yes Status: Acute Category: Medical Code(s): A49.8 - Other bacterial infections of unspecified site - Assessment and plan all Dx Assessment and Plan for all problems:: Rounded with Dr. Saenz all orders per Letty Continue isolation Start Levaquin for throat culture
--- NOTE | 2019-10-08 11:50 | PC.NURSE ---
PATIENT UP TO RECLINER AT THIS TIME.
--- NOTE | 2019-10-08 19:15 | PC.NURSE ---
Carmel JACKMAN will be providing care under my supervision.
--- NOTE | 2019-10-08 19:20 | PC.NURSE ---
PATIENT HAS BEEN UP TO THE CHAIR MOST OF THE SHIFT. SHE STATES THAT SHE IS FEELING REALLY GOOD . HAS NOT REQUIRED O2 THIS SHIFT AND HAS REMAINED AFEBRILE. CALL LIGHT WITHIN REACH WILL CONTINUE TO MONITOR.
--- NOTE | 2019-10-08 23:27 | PC.NURSE ---
Sars Cov 2 ANtibody IgM and IgG resulted. aware.
[2019-10-09] VITALS: BP 129/74; PULSE 95; RESP 24; TEMP 38; O2SAT 97
[2019-10-09 04:00] VITALS: BP 126/85; PULSE 91; RESP 20; TEMP 37.2; O2SAT 96
[2019-10-09 05:00] VITALS: BMI 34.7
--- NOTE | 2019-10-09 05:12 | PC.NURSE ---
Patient has rested peacefully throughout the night. Pt has remained febrile throughout the shift and was given meds per JUL. Pt balderas catheter is draining properly with yvrose, cloudy urine. Pt has call light within reach. All safety measures are in place. No complaints of discomfort at this time. Will continue to monitor for any changes.
[2019-10-09 05:39] LABS: Eosinophils % 0.2 % (0.1-12.0); Hematocrit 35.6 % (37.0-47.0); Hemoglobin 11.9 g/dL (12.2-16.2); Lymphocytes # 0.9 K/mm3 (0.7-4.5); Lymphocytes % 21.9 % (10-50); Mean Corpuscular HGB Conc 33.4 g/dL (31.8-35.4); Mean Corpuscular Hemoglobin 32.2 pg (27.0-31.2); Mean Corpuscular Volume 96.3 fl (81-99); Mean Platelet Volume 9.2 fl (7.4-10.4); Monocytes # 0.3 K/mm3 (0.1-1.0); Monocytes % 7.1 % (1.7-9.3); Neutrophils # 2.9 K/mm3 (1.8-7.8); Neutrophils % 69.9 % (37.0-80.0); Platelet Count 146 K/mm3 (142-424); Red Cell Distribution Width 17.4 % (11.5-17.5); White Blood Count 4.1 K/mm3 (4.8-10.8)
[2019-10-09 05:49] LABS: Anion Gap 7.4 mEq/L (5-15); Blood Urea Nitrogen 10 mg/dl (7-17); Calcium 8.5 mg/dl (8.4-10.2); Carbon Dioxide 32 mmol/L (22.0-30.0); Chloride 99 mmol/L (98-107); Creatinine Clearance Estimated 93 mL/min (50-200); Estimated Glomerular Filt Rate 99 ml/min (>60); GFR (African American) 120 ML/MIN (>60); Glucose 85 mg/dl (74-100); Potassium 3.4 mmoL/L (3.5-5.1); Sodium 135 mmol/L (136-145)
[2019-10-09 08:18] VITALS: BP 137/86; PULSE 91; RESP 14; TEMP 36.9; O2SAT 97
[2019-10-09 08:30] VITALS: PULSE 91; RESP 14; O2SAT 97
--- NOTE | 2019-10-09 09:14 | P.PN_ITS ---
Internal Medicine - PN: Subj *Date: 10/11/19 *Time: 11:04 Interval history: doing better - some temp - estephanie diet Exam Vital signs and Labs for Last 24 Hours: Temp Pulse Resp BP Pulse Ox 98.4 F 91 H 14 137/86 97 10/09/19 08:18 10/09/19 08:30 10/09/19 08:30 10/09/19 08:18 10/09/19 08:30 Laboratory Results - last 24 hr 10/09/19 04:50: WBC 4.1 L, RBC 3.70 L, Hgb 11.9 L, Hct 35.6 L, MCV 96.3, MCH 32.2 H, MCHC 33.4, RDW 17.4, Plt Count 146, MPV 9.2, Neut % (Auto) 69.9, Lymph % (Auto) 21.9, [place] % (Auto) 7.1, Eos % (Auto) 0.2, Baso % (Auto) 1.0, Neut # (Auto) 2.9, Lymph # (Auto) 0.9, [place] # (Auto) 0.3, Eos # (Auto) 0.0, Baso # (Auto) 0.0 10/09/19 04:50: Sodium 135 L, Potassium 3.4 L, Chloride 99, Carbon Dioxide 32 H, Anion Gap 7.4, BUN 10, Creatinine 0.60, Estimated Creat Clear 93, Estimated GFR 99, Est GFR ( Amer) 120, Glucose 85, Calcium 8.5 I & O for Last 24 hours: Intake & Output 10/06/19 10/07/19 10/08/19 10/09/19 11:59 11:59 11:59 11:59 Intake Total 1570 / 1570 1944 / 1944 2338 / 2338 810 / 810 Output Total 4000 / 4000 1100 / 1100 1600 / 1600 750 / 750 Balance -2430 / -2430 844 / 844 738 / 738 60 / 60 Weight 249 lb 245 lb 2 oz 245 lb 2.006 oz 248 lb 3 oz Microbiology Reports for the Last 24 Hours: Microbiology 10/05/19 02:40 Throat Throat Culture - Final Proteus mirabilis - Constitutional no acute distress, obese - *Routine HEENT Exam Head: Present: normocephalic Eye: Present: EOMI, PERRL ENT: Present: mucous membranes dry - *Routine Neck Exam Absent: JVD - *Routine Respiratory Exam Present: decreased breath sounds - *Routine Cardiovascular Exam Present: RRR, murmur - *Routine Extremities Exam Absent: calf tenderness - *Routine Skin Exam Present: intact - *Routine Neurological Exam Present: alert, CN II-XII intact - Routine Psychiatric Exam Absent: good insight Assessment and Plan (1) COVID-19 Current visit: Yes Status: Acute Category: Medical Code(s): U07.1 - COVID- 19 (2) Febrile illness, acute Current visit: Yes Status: Acute Category: Medical Code(s): R50.9 - Fever, unspecified (3) Adult BMI 34.0-34.9 kg/sq m Current visit: Yes Status: Acute Category: Medical Code(s): Z68.34 - Body mass index (BMI) 34.0-34.9, adult (4) Proteus mirabilis infection Current visit: Yes Status: Acute Category: Medical Code(s): A49.8 - Other bacterial infections of unspecified site
[2019-10-09 16:00] VITALS: BP 127/66; PULSE 87; RESP 16; TEMP 36.8; O2SAT 97
--- NOTE | 2019-10-09 17:18 | PC.NURSE ---
Pt has been pleasant and cooperative this shift. A&O X4. Lung sounds are clear. O2 sats >95% on RA. Skin c/d/i. F/C draining clear, dark, yellow urine at bedside and free from kinks. Pt has sat up in the chair for the majority of this shift. Pt received a basin bath and total bed change. Pt requires 2 assist when ambulating. No complaints of pain or SOA this shift. 20 G peripheral IV in place to the LT AC is SL and patent with no s/s of infiltration. VSS. Call light within reach. Will continue to monitor.
[2019-10-09 20:00] VITALS: BP 142/72; PULSE 90; RESP 20; TEMP 37.2; O2SAT 96
--- NOTE | 2019-10-10 03:02 | PC.NURSE ---
Pt requested to sleep in the chair tonight, appears to be resting well with no objective s/s of pain or respiratory distress identified. 96% on room air when checked. Henderson catheter patent and draining by gravity to bedside with yvrose, cloudy urine noted. Vital signs stable, afebrile, nothing acute to report thus far. Pt is alert and knows her medication, no problems taking meds. Presently sleeping in chair, monitoring continues.
[2019-10-10 04:00] VITALS: BP 148/71; PULSE 105; RESP 20; TEMP 37.3; O2SAT 91
[2019-10-10 07:24] LABS: Basophils # 0.1 K/mm3 (0-0.2); Basophils % 3.6 % (0.1-2.0); Eosinophils % 0.2 % (0.1-12.0); Hematocrit 38.5 % (37.0-47.0); Hemoglobin 12.8 g/dL (12.2-16.2); Lymphocytes % 25.2 % (10-50); Mean Corpuscular HGB Conc 33.3 g/dL (31.8-35.4); Mean Corpuscular Hemoglobin 32.3 pg (27.0-31.2); Mean Platelet Volume 9.2 fl (7.4-10.4); Monocytes # 0.3 K/mm3 (0.1-1.0); Monocytes % 8.3 % (1.7-9.3); Neutrophils # 2.4 K/mm3 (1.8-7.8); Neutrophils % 62.8 % (37.0-80.0); Platelet Count 140 K/mm3 (142-424); Red Blood Count 3.97 M/mm3 (4.20-5.40); Red Cell Distribution Width 17.1 % (11.5-17.5); White Blood Count 3.8 K/mm3 (4.8-10.8)
[2019-10-10 07:26] LABS: Chloride 96 mmol/L (98-107); Potassium 3.5 mmoL/L (3.5-5.1); Sodium 133 mmol/L (136-145)
[2019-10-10 07:29] LABS: Blood Urea Nitrogen 14 mg/dl (7-17); Creatinine Clearance Estimated 93 mL/min (50-200); Estimated Glomerular Filt Rate 71 ml/min (>60); GFR (African American) 86 ML/MIN (>60)
[2019-10-10 07:30] LABS: Anion Gap 5.5 mEq/L (5-15); Calcium 8.6 mg/dl (8.4-10.2); Carbon Dioxide 35 mmol/L (22.0-30.0); Glucose 86 mg/dl (74-100)
[2019-10-10 08:00] VITALS: BP 126/85; PULSE 91; RESP 18; TEMP 37.2; O2SAT 96
[2019-10-10 16:00] VITALS: BP 155/60; PULSE 87; RESP 18; TEMP 36.9; O2SAT 94
--- NOTE | 2019-10-10 16:13 | P.PN_ITS ---
Internal Medicine - PN: Subj *Date: 10/11/19 *Time: 11:08 Interval history: more alert - estephanie diet Exam Vital signs and Labs for Last 24 Hours: Temp Pulse Resp BP Pulse Ox 99.0 F 91 H 18 126/85 96 10/10/19 08:00 10/10/19 08:00 10/10/19 08:00 10/10/19 08:00 10/10/19 08:00 Laboratory Results - last 24 hr 10/10/19 05:30: WBC 3.8 L, RBC 3.97 L, Hgb 12.8, Hct 38.5, MCV 97.0, MCH 32.3 H, MCHC 33.3, RDW 17.1, Plt Count 140 L, MPV 9.2, Neut % (Auto) 62.8, Lymph % (Auto) 25.2, [place] % (Auto) 8.3, Eos % (Auto) 0.2, Baso % (Auto) 3.6 H, Neut # (Auto) 2.4, Lymph # (Auto) 1.0, [place] # (Auto) 0.3, Eos # (Auto) 0.0, Baso # (Auto) 0.1 10/10/19 05:30: Sodium 133 L, Potassium 3.5, Chloride 96 L, Carbon Dioxide 35 H, Anion Gap 5.5, BUN 14 D, Creatinine 0.80 D, Estimated Creat Clear 93, Estimated GFR 71, Est GFR ( Amer) 86 D, Glucose 86, Calcium 8.6 I & O for Last 24 hours: Intake & Output 10/08/19 10/09/19 10/10/19 10/11/19 11:59 11:59 11:59 11:59 Intake Total 2488 / 2488 960 / 960 1590 / 1590 Output Total 1600 / 1600 750 / 750 850 / 850 Balance 888 / 888 210 / 210 740 / 740 Weight 245 lb 2.006 oz 248 lb 3 oz Microbiology Reports for the Last 24 Hours: Microbiology 10/05/19 02:40 Blood Blood Culture - Final NO GROWTH AFTER 5 DAYS 10/05/19 02:40 Blood Blood Culture - Final NO GROWTH AFTER 5 DAYS - Constitutional no acute distress, obese - *Routine HEENT Exam Head: Present: normocephalic Eye: Present: EOMI, PERRL ENT: Present: mucous membranes dry - *Routine Respiratory Exam Present: decreased breath sounds - *Routine Cardiovascular Exam Present: RRR, murmur - *Routine Abdominal Exam Present: soft - *Routine Extremities Exam Absent: calf tenderness - *Routine Skin Exam Present: intact - *Routine Neurological Exam Present: alert, CN II-XII intact - Routine Psychiatric Exam Present: normal affect Assessment and Plan (1) COVID-19 Current visit: Yes Status: Acute Category: Medical Code(s): U07.1 - COVID- 19 (2) Febrile illness, acute Current visit: Yes Status: Acute Category: Medical Code(s): R50.9 - Fever, unspecified (3) Adult BMI 34.0-34.9 kg/sq m Current visit: Yes Status: Acute Category: Medical Code(s): Z68.34 - Body mass index (BMI) 34.0-34.9, adult (4) Proteus mirabilis infection Current visit: Yes Status: Acute Category: Medical Code(s): A49.8 - Other bacterial infections of unspecified site
[2019-10-10 20:00] VITALS: BP 156/86; PULSE 107; RESP 18; TEMP 36.7; O2SAT 97
[2019-10-11 04:00] VITALS: BP 120/79; PULSE 88; RESP 16; TEMP 36.7; O2SAT 93
[2019-10-11 05:00] VITALS: BMI 34.4
--- NOTE | 2019-10-11 05:15 | PC.NURSE ---
Pt slept well. No complaints reported to staff. Henderson patent to bedside drain w/ clear, dark yellow urine noted. Tolerating RA well. VSS.
[2019-10-11 05:54] LABS: Basophils # 0.1 K/mm3 (0-0.2); Basophils % 1.5 % (0.1-2.0); Eosinophils % 0.4 % (0.1-12.0); Hematocrit 36.2 % (37.0-47.0); Hemoglobin 11.9 g/dL (12.2-16.2); Lymphocytes # 1.1 K/mm3 (0.7-4.5); Lymphocytes % 35.3 % (10-50); Mean Corpuscular HGB Conc 32.8 g/dL (31.8-35.4); Mean Corpuscular Hemoglobin 32.1 pg (27.0-31.2); Mean Corpuscular Volume 97.8 fl (81-99); Mean Platelet Volume 8.9 fl (7.4-10.4); Monocytes # 0.3 K/mm3 (0.1-1.0); Monocytes % 7.9 % (1.7-9.3); Neutrophils # 1.8 K/mm3 (1.8-7.8); Neutrophils % 54.8 % (37.0-80.0); Platelet Count 158 K/mm3 (142-424); Red Cell Distribution Width 17.3 % (11.5-17.5); White Blood Count 3.2 K/mm3 (4.8-10.8)
[2019-10-11 06:18] LABS: Chloride 98 mmol/L (98-107); Sodium 132 mmol/L (136-145)
[2019-10-11 06:19] LABS: Potassium 3.3 mmoL/L (3.5-5.1)
[2019-10-11 06:21] LABS: Blood Urea Nitrogen 14 mg/dl (7-17); Creatinine Clearance Estimated 92 mL/min (50-200); Estimated Glomerular Filt Rate 83 ml/min (>60); GFR (African American) 100 ML/MIN (>60)
[2019-10-11 06:22] LABS: Anion Gap 2.3 mEq/L (5-15); Calcium 8.1 mg/dl (8.4-10.2); Carbon Dioxide 35 mmol/L (22.0-30.0); Glucose 89 mg/dl (74-100)
[2019-10-11 08:00] VITALS: BP 125/84; PULSE 93; RESP 20; TEMP 36.8; O2SAT 94
[2019-10-11 09:15] LABS: Adenovirus,PCR Not Detected (NotDetected); Bordetella Pertussis Not Detected (NotDetected); Chlamydophila Pneumoniae, PCR Not Detected (NotDetected); Coronavirus 229E Not Detected (NotDetected); Coronavirus NL63 Not Detected (NotDetected); Coronavirus OC43 Not Detected (NotDetected); Coronovirus HKU1,PCR Not Detected (NotDetected); Human Metapneumovirus Not Detected (NotDetected); Influenza A, PCR Not Detected (NotDetected); Influenza AH1, 2009 Not Detected (NotDetected); Influenza AH1, PCR Not Detected (NotDetected); Influenza AH3,PCR Not Detected (NotDetected); Influenza B, PCR Not Detected (NotDetected); Mycoplasma Pneumoniae, PCR Not Detected (NotDected); Parainfluenza 1, PCR Not Detected (NotDetected); Parainfluenza 2, PCR Not Detected (NotDetected); Parainfluenza 3, PCR Not Detected (NotDetected); Parainfluenza 4, PCR Not Detected (NotDetected); Respiratory Syncytial Virus Not Detected (NotDetected); Rhinovirus/Enterovirus Not Detected (NotDetected)
[2019-10-11 10:00] VITALS: O2SAT 94
--- NOTE | 2019-10-11 10:06 | SW/DCPLANNER ---
I have notified Bryson with [facility] regarding this patient. I have informed Bryson that patient will be re-swabbed today and if negative patient will be ready for discharge. I have also informed Bryson that PT/OT has been ordered for this patient.
--- NOTE | 2019-10-11 11:19 | HMH.SLDYSPHA ---
Speech & Language Evaluation Speech/Language Dysphagia Evaluation Start: 10/11/19 11:01 Freq: ONCE Status: Active Protocol: Document 10/11/19 11:02 [email or web address] (Rec: 10/11/19 11:19 [email or web address] [id number]) Dysphagia Assess/Goals/Plan Assessment Date of Evaluation: 10/11/19 Evaluation Type Initial Certification Assessment/Problems Rule out aspiration Does Patient Qualify for Service No Qualify/Failure Comment Diet remains appropriate at home. While admitted to [facility], Ms. Wall will be placed on Mechanical soft diet with chopped meats with sauce or gravy with thin liquids. Plan Pt/Guardian verbally ack understanding Yes: RN and CM notified of dx/prognosis/goals G -code Required No Speech & Language HPI Hearing Comment Patient hearing acquity is difficult to determine due to caregivers having to wear N-95 masks with face garcia. Language Primary Language Lao General Information General Current Food Consistancy Mechanical Soft,Chopped Meats, Thin Liquids Dentition Edentulous Oxygen Status Room Air Facial Symmetry Symmetrical Patient Orientation Person,Place Ability to Follow Directions Excellent Communication Ability No Impairment Dysphagia:Food Presentation Evaluation Food Type Pureed,Mechanical Soft,Regular ,Liquid,Pudding Dysphagia Evaluation Summary Ms. Wall was given the following consistencies: thins via straw and open cup, pudding, pureed, mechanical soft, and regular. No signs of dysphagia were noted however, due to lack of dentition it is recommended that Ms. Wall be placed on a mechanical chopped diet with thin liquids. Speech therapy is not recommended at this time. She will be monitored while admitted to hospital. Stroke Dysphagia Assessment PHYSICIAN CERTIFICATION: I certify the specified therapy services for Gaby Wall are required, authorized, and reviewed every 30 days.
--- NOTE | 2019-10-11 11:37 | HMH.ACPN ---
Internal Medicine - PN: Subj *Date: 10/11/19 *Time: 11:37 Exam Vital signs and Labs for Last 24 Hours: Temp Pulse Resp BP Pulse Ox 98.2 F 93 H 20 125/84 94 L 10/11/19 08:00 10/11/19 08:00 10/11/19 08:00 10/11/19 08:00 10/11/19 10:00 Laboratory Results - last 24 hr 10/11/19 05:00: WBC 3.2 L, RBC 3.70 L, Hgb 11.9 L, Hct 36.2 L, MCV 97.8, MCH 32.1 H, MCHC 32.8, RDW 17.3, Plt Count 158, MPV 8.9, Neut % (Auto) 54.8, Lymph % (Auto) 35.3, [place] % (Auto) 7.9, Eos % (Auto) 0.4, Baso % (Auto) 1.5, Neut # (Auto) 1.8, Lymph # (Auto) 1.1, [place] # (Auto) 0.3, Eos # (Auto) 0.0, Baso # (Auto) 0.1 10/11/19 05:00: Sodium 132 L, Potassium 3.3 L, Chloride 98, Carbon Dioxide 35 H, Anion Gap 2.3 L, BUN 14, Creatinine 0.70, Estimated Creat Clear 92, Estimated GFR 83, Est GFR ( Amer) 100, Glucose 89, Calcium 8.1 L I & O for Last 24 hours: Intake & Output 10/08/19 10/09/19 10/10/19 10/11/19 23:59 23:59 23:59 23:59 Intake Total 1449 / 1449 1560 / 1680 1110 / 1110 Output Total 1600 / 1800 1350 / 1350 250 / 450 200 / 200 Balance -151 / -351 210 / 330 860 / 660 -200 / -200 Weight 111.187 kg 112.576 kg 111.64 kg Assessment and Plan (1) COVID-19 Current visit: Yes Status: Acute Category: Medical Code(s): U07.1 - COVID-19 (2) Febrile illness, acute Current visit: Yes Status: Acute Category: Medical Code(s): R50.9 - Fever, unspecified (3) Adult BMI 34.0-34.9 kg/sq m Current visit: Yes Status: Acute Category: Medical Code(s): Z68.34 - Body mass index (BMI) 34.0-34.9, adult (4) Proteus mirabilis infection Current visit: Yes Status: Acute Category: Medical Code(s): A49.8 - Other bacterial infections of unspecified site The patient's infection will respond to the chosen ABx?: Yes Is the patient receiving the right drug, dose, and route?: Yes Could a more targeted ABx be ordered?: No (Culture (Proteus mirabilis) sensitive to Levaquin.)
[2019-10-11 12:00] VITALS: BP 137/51; PULSE 91; RESP 17; TEMP 36.6; O2SAT 96
[2019-10-11 12:02] LABS: Coronavirus 19, PCR Detected (NotDetected)
--- NOTE | 2019-10-11 12:36 | HMH.PTEV ---
Physical Therapy Evaluation Rehab PT IP Evaluation Start: 10/11/19 08:27 Freq: .once Status: Active Protocol: Document 10/11/19 12:31 PWPATRIA (Rec: 10/11/19 12:36 PWPATRIA [id number]) Subjective/History History History This is the initial IP PT evaluation for Gaby Wall. Pt is a 68 female admitted through ER for + COVID - pt lives at [facility]. Subjective Subjective Pt reports she is willing to participate - pt states she uses WC at home. Rehab PT IP Eval Objective Appearance Patient Behavior Appropriate,Cooperative Patient Orientation Person,Place,Time Difficulty following instructions mild Speech Pattern Slurred,Garbled,Rambling, Mumbled Ambulation Patient Able to Ambulate Yes Ambulation Observation IP General Gait Pattern Observation Wide Based Gait,Ataxic Gait, Shuffling Step Ambulation Distance (feet) 3 Ambulation Assistive Device None Ambulation Ability Minimal x 2 (25% assist) Balance Ability to Arise Able, uses arms to help Sitting Balance Steady, safe Standing Balance Steady, wide stance Dynamic Sitting Balance Ability Fair Dynamic Standing Balance Ability Poor Transfers Bed Transfer Ability Contact Guard/Hand Hold Chair Transfer Ability Contact Guard/Hand Hold Sit to Stand Bed Transfer Ability Minimal x 1 (25% assist) Sit to Stand Chair Transfer Ability Minimal x 1 (25% assist) Rehab PT IP prob,goals,plan Problems Date of Evaluation: 10/11/19 PT IP Problems Bed Mobility,Transfers,Gait Rehab Potential Rehab Potential Fair Equipment Needs Assistive Devices None / NA Plan PT Intervention Plan Bed Mobility,Transfers,Gait, Therapeutic Exercise PT Plan Frequency BID Duration LOS Discharge Goals Bed Transfer Ability Contact Guard/Hand Hold Sit to Stand Chair Transfer Ability Minimal x 1 (25% assist) Ambulation Assistive Device None Ambulation Distance (feet) 3 Discharge Plan PT Discharge Plan Pt to return to [place] once medically stable and COVID - G -code Required No Eval Complexity Eval Charge Codes 14578 - High Complexity PHYSICIAN CERTIFICATION: I certify the specified therapy services for Gaby L Duke are required, authorized, and reviewed every 30 days.
--- NOTE | 2019-10-11 12:40 | HMH.ACPN2 ---
Internal Medicine - PN: Nannette *Date: 10/11/19 *Time: 09:00 Interval history: pt states she is well today Exam Vital signs and Labs for Last 24 Hours: Temp Pulse Resp BP Pulse Ox 97.8 F 91 H 17 137/51 L 96 10/11/19 12:00 10/11/19 12:00 10/11/19 12:00 10/11/19 12:00 10/11/19 12:00 Laboratory Results - last 24 hr 10/11/19 05:00: WBC 3.2 L, RBC 3.70 L, Hgb 11.9 L, Hct 36.2 L, MCV 97.8, MCH 32.1 H, MCHC 32.8, RDW 17.3, Plt Count 158, MPV 8.9, Neut % (Auto) 54.8, Lymph % (Auto) 35.3, [place] % (Auto) 7.9, Eos % (Auto) 0.4, Baso % (Auto) 1.5, Neut # (Auto) 1.8, Lymph # (Auto) 1.1, [place] # (Auto) 0.3, Eos # (Auto) 0.0, Baso # (Auto) 0.1 10/11/19 05:00: Sodium 132 L, Potassium 3.3 L, Chloride 98, Carbon Dioxide 35 H, Anion Gap 2.3 L, BUN 14, Creatinine 0.70, Estimated Creat Clear 92, Estimated GFR 83, Est GFR ( Amer) 100, Glucose 89, Calcium 8.1 L 10/11/19 09:05: Chlamy pneumoniae PCR Not detected, Adenovirus (PCR) Not detected, B. pertussis DNA (PCR) Not detected, Coronavirus OC43 (PCR) Not detected, Coronavirus HKU1 (PCR) Not detected, Coronavirus 229E (PCR) Not detected, COVID-19 PCR Detected A, Coronavirus NL63 (PCR) Not detected, Human Metapneumovir PCR Not detected, Influenza A (H1) PCR Not detected, Influ A (H1N1/09) PCR Not detected, Influenza A (H3) PCR Not detected, Influenza Type A (PCR) Not detected, Influenza Type B (PCR) Not detected, M. pneumoniae (PCR) Not detected, Parainfluenza 1 (PCR) Not detected, Parainfluenza 2 (PCR) Not detected, Parainfluenza 3 (PCR) Not detected, Parainfluenza 4 (PCR) Not detected, RSV (PCR) Not detected, Entero/Rhino (PCR) Not detected I & O for Last 24 hours: Intake & Output 10/09/19 10/10/19 10/11/19 10/12/19 11:59 11:59 11:59 11:59 Intake Total 960 / 960 1740 / 1740 480 / 480 Output Total 750 / 750 850 / 850 200 / 200 Balance 210 / 210 890 / 890 280 / 280 Weight 248 lb 3 oz 246 lb 2 oz - Constitutional no acute distress, obese - *Routine HEENT Exam Head: Present: normocephalic Eye: Present: PERRL ENT: Present: mucous membranes moist - *Routine Neck Exam Present: supple. Absent: lymphadenopathy - *Routine Respiratory Exam Present: CTA bilaterally - *Routine Cardiovascular Exam Present: RRR - *Routine Abdominal Exam Present: soft, normoactive bowel sounds. Absent: tenderness - *Routine Extremities Exam Present: normal capillary refill. Absent: cyanosis, clubbing, edema - *Routine Skin Exam Present: warm. Absent: rash - *Routine Neurological Exam Present: alert - Routine Psychiatric Exam Present: normal affect Assessment and Plan (1) COVID-19 Current visit: Yes Status: Acute Category: Medical Code(s): U07.1 - COVID-19 (2) Febrile illness, acute Current visit: Yes Status: Acute Category: Medical Code(s): R50.9 - Fever, unspecified (3) Adult BMI 34.0-34.9 kg/sq m Current visit: Yes Status: Acute Category: Medical Code(s): Z68.34 - Body mass index (BMI) 34.0-34.9, adult (4) Proteus mirabilis infection Current visit: Yes Status: Acute Category: Medical Code(s): A49.8 - Other bacterial infections of unspecified site - Assessment and plan all Dx Assessment and Plan for all problems:: orders per dr burrell- he will round later today covid retest if neg dc back to [facility]
--- NOTE | 2019-10-11 14:03 | HMH.OTEV ---
OT Inpatient Evaluation Rehab OT IP Evaluation Start: 10/11/19 09:27 Freq: ONCE Status: Complete Protocol: Document 10/11/19 13:58 [facility] (Rec: 10/11/19 14:03 [facility] [id number]) Rehab OT IP Assessment Subjective History Pt is oriented x 3 on arrival. Pt agreeable to pariticpate in therapy evaluation; pt pleasent. Pt was admitted via ED on 10/05/19 for exposure to COVID-19 at home and onset of symptoms. Pt has a past medical history of HTN. Pt explains at home she stayed in a wheelchair and transferred from surface to surface when she needed to. Pt claims she was independent with feeding, dressing, and bathing (sponge baths). However she was dependent on staff to complete IADL's. Subjective I can do it. Objective Patient Orientation Person,Place,Birthday Upper Extremity Gross ROM WFL Bed Mobility bed mobility-scooting,bed mobility - supine/sit,bed mobility - rolling Assist Level Contact Guard/Hand Hold Transfer Training Sit/Stand Transfer Assist Level Minimal x 2 (25% assist) Chair Transfer Ability Minimal x 2 (25% assist) Chair Transfer Technique Sit to/from Ambulatory Chair Transfer Assistive Devices Rolling Walker Rehab OT IP prob,goals,plan Problems Date of Evaluation: 10/11/19 OT IP Problems Bed Mobility,Transfers,Gait, Balance,Self care,Safety Rehab Potential Rehab Potential Good Equipment Needs Assistive Devices Rolling / Wheeled Walker Plan OT intervention Plan Bed Mobility,Transfers,Gait, Balance,Self care,Safety, Therapeutic Exercise OT Plan Frequency Daily Duration LOS Discharge Goals Bed Mobility Ability Standby Assistance Sit to Stand Chair Transfer Ability Minimal x 1 (25% assist) Chair Transfer Ability Minimal x 1 (25% assist) Chair Transfer Technique Sit to/from Ambulatory Chair Transfer Assistive Devices Rolling Walker Self care skills uses utensils to feed self Feeding Ability Independent Lower Body Dressing Ability Assistance X1 Upper Body Dressing Ability
--- NOTE | 2019-10-11 14:25 | HMH.DCSUM ---
General - General Admission date:: 10/05/19 Discharge date: 10/11/19 HPI HPI: 68 YOF in to ED w/ fever x2 to 3 days, recent exposure and half-way to [facility]-19. Patient reports of bilateral lower extremity aches productive cough, and just not feeling well . Received Toradol 30 mg and normal saline 1 L in ED temperature was 100.8 rectally upon arrival in ED COVID-19 positive, virus panel negative. Blood cultures pending x2 Troponins negative x3 10/04/2019 chest x-ray: IMPRESSION: No acute findings. Dictated by: Dr. Mcgovern, Hospital Course Hospital Course: Laboratory Tests 10/05/19 10/05/19 10/05/19 02:30 02:30 02:30 WBC 5.2 RBC 3.90 L Hgb 12.7 Hct 37.6 MCV 96.3 MCH 32.6 H MCHC 33.9 RDW 17.2 Plt Count 159 MPV 8.9 Neut % (Auto) 69.5 Lymph % (Auto) 21.1 [place] % (Auto) 8.9 Eos % (Auto) 0.5 Baso % (Auto) 5.9 H Neut # (Auto) 3.6 Lymph # (Auto) 1.1 [place] # (Auto) 0.5 Eos # (Auto) 0.0 Baso # (Auto) 0.3 H ESR 16 Sodium 137 Potassium 4.1 Chloride 99 Carbon Dioxide 34 H Anion Gap 8.1 BUN 13 Creatinine 0.80 Estimated Creat Clear 55 Estimated GFR 71 Est GFR ( Amer) 86 Glucose 93 Lactate Calcium 9.7 Total Bilirubin 0.5 AST 41 H ALT 25 Alkaline Phosphatase 52 Troponin I < 0.01 C-Reactive Protein 11.8 H NT-Pro-B Natriuret Pep Total Protein 6.6 Albumin 3.7 Globulin 2.9 Albumin/Globulin Ratio 1.3 Urine Color Urine Appearance Urine pH Ur Specific [place] Urine Protein Urine Glucose (UA) Urine Ketones Urine Blood Urine Nitrate Urine Bilirubin Urine Urobilinogen Ur Leukocyte Esterase Urine WBC Ur Squamous Epith Cells Urine Bacteria Total Valproic Acid Chlamy pneumoniae PCR Adenovirus (PCR) B. pertussis DNA (PCR) Coronavirus OC43 (PCR) Coronavirus HKU1 (PCR) Coronavirus 229E (PCR) COVID-19 PCR Coronavirus NL63 (PCR) Human Metapneumovir PCR Influenza A (H1) PCR Influ A (H1N1/09) PCR Influenza A (H3) PCR Influenza Type A Ag Influenza Type A (PCR) Influenza Type B Ag Influenza Type B (PCR) M. pneumoniae (PCR) Parainfluenza 1 (PCR) Parainfluenza 2 (PCR) Parainfluenza 3 (PCR) Parainfluenza 4 (PCR) RSV (PCR) Entero/Rhino (PCR) Group A Strep Rapid 10/05/19 10/05/19 10/05/19 02:30 02:30 02:40 WBC RBC Hgb Hct MCV MCH MCHC RDW Plt Count MPV Neut % (Auto) Lymph % (Auto) [place] % (Auto) Eos % (Auto) Baso % (Auto) Neut # (Auto) Lymph # (Auto) [place] # (Auto) Eos # (Auto) Baso # (Auto) ESR Sodium Potassium Chloride Carbon Dioxide Anion Gap BUN Creatinine Estimated Creat Clear Estimated GFR Est GFR ( Amer) Glucose Lactate Calcium Total Bilirubin AST ALT Alkaline Phosphatase Troponin I C-Reactive Protein NT-Pro-B Natriuret Pep 153 H Total Protein Albumin Globulin Albumin/Globulin Ratio Urine Color Yellow Urine Appearance Clear Urine pH 7.0 Ur Specific [place] 1.020 Urine Protein Negative Urine Glucose (UA) Negative Urine Ketones Negative Urine Blood Negative Urine Nitrate Negative Urine Bilirubin Negative Urine Urobilinogen 0.2 Ur Leukocyte Esterase Negative Urine WBC 3-5 Ur Squamous Epith Cells 3-5 Urine Bacteria 1+ Total Valproic Acid 58.8 Chlamy pneumoniae PCR Adenovirus (PCR) B. pertussis DNA (PCR) Coronavirus OC43 (PCR) Coronavirus HKU1 (PCR) Coronavirus 229E (PCR) COVID-19 PCR Coronavirus NL63 (PCR) Human Metapneumovir PCR Influenza A (H1) PCR Influ A (H1N1/09) PCR Influenza A (H3) PCR Influenza Type A Ag Influenza Type A (PCR) Influenza Type B Ag I
[2019-10-11 16:30] LABS: Coronavirus 19 IgG Antibody Negative (Negative); Coronavirus 19 IgM Antibody Negative (Negative)
--- NOTE | 2019-10-11 18:05 | PC.NURSE ---
Removed sherrie this shift per Cecilia Poe aprn before pt went back to [facility] via [facility].
[2019-10-14 10:37] LABS: Covid-19 Nasal PCR Sendout Lex Positive
== END 2019-10-11 15:30 | disposition home or self-care (01) | DRG 179 ==
LOC: ER 04:55 → ICU 05:47
PROVIDERS: Internal Medicine Adolescent Medicine; Nurse Practitioner Family; Admitting Provider Emergency Medicine; Emergency Provider Emergency Medicine; PCP Emergency Medicine; Visit Provider Emergency Medicine
DX: U07.1 COVID-19 (principal); I10 Essential (primary) hypertension; B96.4 Proteus (mirabilis) (morganii) as the cause of diseases classified elsewhere; F20.9 Schizophrenia, unspecified; I69.322 Dysarthria following cerebral infarction; Z87.891 Personal history of nicotine dependence
CPT/HCPCS: 36415; 71045; 80048; 80053; 80164; 81001; 83605; 83880; 84484; 85025; 85651; 86140; 86328; 87040; 87070; 87077; 87186; 87275; 87276; 87430; 87581; 87633; 87798; 92610; 93005; 94761; 96365; 97110; 97163; 97167; 99285; J1956; U0004